=== PATIENT | female | born 1985 | race Two or more races ===

== ENCOUNTER 2025-05-06 21:00 | Emergency (ER) | payer BC ==
[~2025-05-06] VITALS: Ht 170.2 cm; Wt 89.5 kg
--- NOTE | 2025-05-06 21:19 | ED.PDOC ---
GI ASSESSMENT HPI Comments 40-year-old female came to ER for abdominal pain. Patient states she has been having intermittent episodes of suprapubic/pelvic pain for the past few months. Patient was seen regarding this issue but showed unremarkable results. For the past 3 days, recurrence of suprapubic pain/ pelvic pain, described as pressure, 10/10 intensity, unrelieved with intake of Ibuprofen. Noted to be constipated but denies any nausea, vomiting, diarrhea or any vaginal bleeding/ discharge. Denies any possibility of . Patient was seen at Urgent Care yesterday but showed normal results also. Chief Complaint: Abdominal pain Time Seen by MD: 21:17 Reviewed Notes: Nurses Notes Allergies: Coded Allergies: No Known Drug Allergy (Verified Allergy, Unknown, 05/06/25) Information Source: Patient Mode of Arrival: Ambulatory Timing: Months Duration: Intermittent Quality: Other (Pressure) Vomitus: None Stool: Impaction Severity: Moderate Recent: None Recent Hx of: Abdominal Surgery (CS) Pain Location: Suprapubic, Other (pelvic) Associated sign and symptoms: Constipation, Abdominal Pain, Other (pelvic pain) Review of Systems REVIEW OF SYSTEMS: No fever, no chills, or fatigue HEENT: No sore throat, no earache, no congestion, no neck pain. Cardiac: No chest pain. No palpitations. Lungs: No shortness of breath, no cough. GI: No nausea, no vomiting, no diarrhea, no constipation, (+) abdominal pain : No dysuria, frequency, or urgency. No hematuria. (+) pelvic pain Musculoskeletal: No joint pain , no joint swelling, no extremity edema. Skin: No rash, no itching. Neuro: No headache, no dizziness, no weakness Vital Signs Vital Signs Date Time Temp Pulse Resp B/P (MAP) Pulse Ox O2 Delivery O2 Flow Rate FiO2 05/06/25 22:01 97.8 80 16 121/79 (93) 98 97.8 Physical Exam General: Awake, alert and oriented. No acute distress. Skin: Skin in warm, dry and intact. Appropriate color for ethnicity. Nailbeds pink with no cyanosis. HEENT: The head is normocephalic and atraumatic. Conjunctivae are clear without exudates or hemorrhage. Sclera is non-icteric. EOM are intact. No signs of nystagmus. Eyelids are normal in appearance without swelling or lesions. Oral mucosa is pink and moist Neck: The neck is supple with normal range of motion. No JVD. Cardiac: Heart rate and rhythm are normal. No murmurs, gallops, or rubs are auscultated. Respiratory: No signs of respiratory distress. Lung sounds are clear in all lobes bilaterally without rales, rhonchi, or wheezes. Abdominal: Abdomen is soft, lower abdominal tenderness Bowel sounds are present and normoactive in all four quadrants. No CVA tenderness Extremities: Upper and lower extremities are atraumatic in appearance without deformity or edema. Neurological: The patient is awake, alert and oriented to person, place, and time with normal speech. Speech is clear. There is no facial asymmetry. Psychiatric: Appropriate mood and affect. Good judgement and insight. No visual or auditory hallucinations. 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 Was a procedure done?: No GI differential Dx Differential Diagnosis: Constipation, Diverticular disease, Gastritis/PUD, Gastroenteritis, Hernia, Ovarian cyst/torsion, PID, UTI, Urolithiasis X-Ray, Labs, Meds, VS Vital Signs Date Time Temp Pulse Resp B/P (MAP) Pulse Ox O2 Delivery O2 Flow Rate FiO2 05/06/25 22:01 97.8 80 16 121/79 (93) 98 97.8 Lab Test 05/06/25 21:24 05/06/25 00:00 Range/Units White Blood Count 8.0 4.4-10.8 10^3/uL Red Blood Count 4.32 4.0-5.20 10^6/uL Hemoglobin 14.0 12.2-16.2 g/dL Hematocrit 40.6 36.0-46.0 % Mean Corpuscular Volume 93.9 80.0-100.0 fL Mean Corpuscular Hemoglobin 32.3 H 28.0-32.0 pg Mean Corpuscular Hemoglobin Concent 34.4 32.0-36.0 g/dL Red Cell Distribution Width 12.3 11.8-14.3 % Platelet Count 466 H 140-450 10^3/uL Mean Platelet Volume 6.2 L 6.9-10.8 fL Neutrophils (%) (Auto) 54.1 37.0-80.0 % Lymphocytes (%) (Auto) 38.0 10.0-50.0 % Monocytes (%) (Auto) 5.8 0.0-12.0 % Eosinophils (%) (Auto) 1.5 0.0-7.0 % Basophils (%) (Auto) 0.6 0.0-2.0 % Neutrophils # (Auto) 4.3 1.6-8.6 10 ^3/uL Lymphocytes # (Auto) 3.0 0.4-5.4 10 ^3/uL Monocytes # (Auto) 0.5 0-1.3 10 ^3/uL Eosinophils # (Auto) 0.1 0-0.8 10 ^3/uL Basophils # (Auto) 0.1 0-0.2 10 ^3/uL Nucleated Red Blood Cells 0.0 % Sodium Level 144 136-145 mmol/L Potassium Level 4.0 3.5-5.1 mmol/L Chloride Level 105 98-107 mmol/L Carbon Dioxide Level 28 20-31 mmol/L Anion Gap 11 5-15 Blood Urea Nitrogen 14 9-23 mg/dL Creatinine 0.91 0.550-1.02 mg/dL Glomerular Filtration Rate Calc 82 >90 mL/min BUN/Creatinine Ratio 15.4 10.0-20.0 Serum Glucose 88 74-106 mg/dL Calcium Level 10.4 8.7-10.4 mg/dL Urine Color Dark-brown Yellow Urine Clarity Turbid H Clear Urine pH 5.5 5.0-9.0 Urine Specific [place] 1.035 1.001-1.035 Urine Protein 1+ H Negative Urine Ketones Negative Negative Urine Blood Negative Negative /uL Urine Nitrite 1+ H Negative Urine Bilirubin 1+ H Negative Urine Urobilinogen 6 Negative mg/dL Urine Leukocyte Esterase 1+ Negative /uL Urine RBC 6 0 - 4 /hpf Urine Microscopic WBC 120 H 0-5 /HPF Urine Squamous Epithelial Cells Few <5 /hpf Urine Bacteria Few H None Seen /hpf Urine Mucus Few None Seen Urine Glucose Normal Normal mg/dL Urine Test Negative Negative Time of 1ST Reevaluation: 21:11 Reevaluation 1ST: Unchanged Patient Education/Counseling: Prognosis Family Education/Counseling: No Family Present Departure 1 Departure Time of Disposition: 22:33 Impression: Primary Impression: Pelvic pain Additional Impression: UTI (urinary tract infection) Disposition: HOME / SELF CARE / HOMELESS Condition: Stable Additional Instructions: ED DISCHARGE INSTRUCTIONS Instructions: Please read all instructions provided in this packet carefully. Although you have been discharged from the Emergency Department, this does not mean that you have a "clean bill of health". No definitive diagnosis for your symptoms has been made today. It is possible that you are in the process of deve loping a serious illness. This is why you must return to the ED without fail if any new or worsening symptoms (especially if your symptoms include chest pain, trouble breathing, abdominal pain, fever, headache, confusion, trouble seeing, or trouble walking) It is also very important that you see a primary care doctor or bundle helper within the next 3-5 days to follow up. If you are unable to get an appointment, return to the ED for re-evaluation. e-Prescriptions Cephalexin (KEFLEX CAPSULE) 250 Mg Cp 1 CAP PO QID for 7 Days, #40 CAP Prov: GAYLE JOHNSON MD 05/06/25 Comments 40-year-old female with pelvic pain intermittently for several months, worse for the past 3 days. Patient is well-appearing, nontoxic. Patient's symptoms improved during the ED observation. Vital signs stable. We will treat for UTI. Other Lab and imaging results reviewed and are not urgently actionable. Patient is felt stable for discharge home. Patient advised to follow up with primary care provider promptly and return to the emergency department with any new, worsening or concerning symptoms. - I reviewed the following notes from the pt's past medical encounters: N/A The following tests were ordered, and results were reviewed by me: (See diagnostic results section) The following test were independently interpreted by me: N/A Additional information was gathered from interviewing the following independent historians: N/A I reviewed and agreed with the following test results read by other providers: N/A I discussed treatments and results with patient Decision regarding hospitalization or escalation of hospital level of care: Ris ks and benefits of admission for further treatment of patient's condition was considered however due to patient's stable condition patient will be discharged to follow up closely or return to care for worsening of condition or inability to follow up. Critical Care Note Critical Care Time?: No Stability Stability form required: No Heart Score Heart Score: Heart Score Response (Comments) Value History N/A 0 EKG N/A 0 Age N/A 0 Risk Factors N/A 0 Troponin N/A 0 Total 0 I personally scribed for GAYLE JOHNSON MD ([email or web address]) on 05/06/25 at 21:19. Electronically submitted by Richard Lovett ([email or web address]). I personally scribed for GAYLE JOHNSON MD ([email or web address]) on 05/06/25 at 21:19. Electronically submitted by Richard Lovett ([email or web address]). GAYLE JOHNSON MD May 06, 2025 21:19
[2025-05-06 21:39] LABS: Basophils # (auto) 0.1 10 ^3/uL (0-0.2); Basophils % (auto) 0.6 % (0.0-2.0); Eosinophils # (auto) 0.1 10 ^3/uL (0-0.8); Eosinophils % (auto) 1.5 % (0.0-7.0); Hematocrit 40.6 % (36.0-46.0); Mean Corpuscular Hemoglobin 32.3 pg (28.0-32.0); Mean Corpuscular Hgb Conc. 34.4 g/dL (32.0-36.0); Mean Corpuscular Volume 93.9 fL (80.0-100.0); Monocytes # (auto) 0.5 10 ^3/uL (0-1.3); Monocytes % (auto) 5.8 % (0.0-12.0); Neutrophils # (auto) 4.3 10 ^3/uL (1.6-8.6); Neutrophils % (auto) 54.1 % (37.0-80.0); Platelet Count (auto) 466 10^3/uL (140-450); Red Blood Cells 4.32 10^6/uL (4.0-5.20); Red Cell Distribution Width 12.3 % (11.8-14.3)
[2025-05-06 21:53] LABS: Chloride 105 mmol/L (98-107); Sodium 144 mmol/L (136-145)
[2025-05-06 21:54] LABS: Anion Gap 11 (5-15); Carbon Dioxide 28 mmol/L (20-31)
[2025-05-06 21:59] LABS: BUN/Creatinine Ratio 15.4 (10.0-20.0); Blood Urea Nitrogen 14 mg/dL (9-23); Glucose 88 mg/dL (74-106)
[2025-05-06 22:04] LABS: Calcium 10.4 mg/dL (8.7-10.4)
[2025-05-06 22:08] LABS: Urine Bacteria FEW /hpf (None Seen); Urine Blood Negative /uL (Negative); Urine Clarity Turbid (Clear); Urine Color Dark-Brown (Yellow); Urine Mucus FEW (None Seen); Urine Protein, UAD 1+ (Negative); Urine Specific Gravity 1.035 (1.001-1.035); Urine Squamous Epithelial Cell FEW /hpf (<5); Urine Urobilinogen 6 mg/dL (Negative); Urine WBC 120 /HPF (0-5); Urine pH 5.5 (5.0-9.0)
[2025-05-06] MEDS ORDERED: CEPH250C PO (22:34)
--- NOTE | 2025-05-06 23:45 | DVH ---
Date: 05/06/2025 10:30 PM Examination: XY KUB ABDOMEN SINGLE VIEW History: Constipation, lower abdominal pain Comparison: None TECHNIQUE: Frontal views of the abdomen was obtained. FINDINGS: Scattered gas throughout nondilated small and large bowel. Moderate retained stool in the colon. No radiopaque foreign body. No abnormal calcifications. No acute osseous abnormality identified. IMPRESSION: 1. No evidence of bowel obstruction. 2. Moderate retained stool in the colon.
--- NOTE | 2025-05-07 01:45 | DVH ---
TRANSABDOMINAL PELVIC ULTRASOUND CLINICAL HISTORY: Pelvic pain TECHNIQUE: Multiple grayscale ultrasound images were obtained of the pelvis via transabdominal appro ach. Limited color Doppler and spectral Doppler acquisitions were also obtained. COMPARISON: Report from pelvic ultrasound dated 05/04/2025 FINDINGS: Uterus: 9.0 x 5.0 x 3.6 cm. The uterine contour is smooth. Heterogeneous myometrium. Endometrium: 0.36 cm. No endometrial mass is seen. Right adnexa: right ovary 2.3 x 1.7 x 1.8 cm. Normal arterial blood flow in the ovary. No right adnex al mass seen. Left adnexa: left ovary 3.2 x 2.1 x 2.3 cm. Normal arterial blood flow in the ovary. No left adnexal mass seen. Other: None IMPRESSION: 1. Normal ovaries. 2. Normal endometrium. 3. Mildly heterogeneous uterus.
[2025-05-07] MEDS: cefTRIAXone SOD 1,000 MG VL IM ONE (05:03)
[2025-05-07] MEDS: ACETAMINOPHEN 325 MG TAB PO ONE (05:03)
[2025-05-07 05:10] VITALS: BP 121/79; PULSE 80; RESP 16; TEMP 98; O2SAT 98
== END 2025-05-07 05:09 | disposition home or self-care (01) ==
LOC: ER 21:00
DX: N39.0 Urinary tract infection, site not specified (principal); E78.5 Hyperlipidemia, unspecified; Z98.890 Other specified postprocedural states
CPT/HCPCS: 36415; 74018; 76856; 80048; 81001; 81025; 85025; 96372; 99285; J0696